=== PATIENT | female | born 1975 | race Caucasian/White ===

== ENCOUNTER 2022-10-14 17:12 | Emergency (ER) | payer MEDICAID, SELFPAY ==
[2022-10-14 17:32] VITALS: BP 123/83; PULSE 99; RESP 20; TEMP 36.2; O2SAT 97; BMI 39.7
--- NOTE | 2022-10-14 18:05 | CRLHL7_ITS ---
For Patients: As a result of the Century Cures Act, medical imaging exams and procedure reports are released immediately into your electronic medical record. You may view this report before your referring provider. If you have questions, please contact your health care provider. INDICATION: Cough TECHNIQUE: Single view chest. FINDINGS: The lungs are clear. The heart, mediastinum and pulmonary vessels are of normal size. There is no evidence of pleural disease. IMPRESSION: Negative chest. Dictated by Ania Celaya MD @ 10/14/2022 7:02:24 PM (Electronically Signed)
--- NOTE | 2022-10-14 18:08 | ED_ITS ---
HPI - General Adult General Time Seen by Provider: 18:09 Date Seen: 10/14/22 Chief complaint: Cough Stated complaint: Chest Pain From Cough Time Seen by Provider: 10/14/22 17:14 Source: patient Mode of arrival: ambulatory Limitations: no limitations History of Present Illness HPI narrative: Gabbie is a 46-year-old female who presents emerged department from work with a cough and chest congestion. 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 She does get some shortness of breath with the coughing, at time she has increased phlegm which causes her to vomit, she has been drinking soup and trying to keep hydrating. She denies any smoking, no history of any asthma. She has not had any ear pain but has a sore throat from coughing which is worse at night. She had 1 episode of coughing to the point where she vomited prior to arrival. She denies any abdominal pain or diarrhea. She is up-to-date on immunizations, she is vaccinated against covid. Due to the worsening symptoms presents emergency department Related Data Previous Rx's Medication Instructions Recorded benzonatate 100 mg capsule 100 mg PO TID 5 days #15 caps 10/14/22 Allergies Allergy/AdvReac Type Severity Reaction Status Date / Time No Known Drug Allergies Allergy Verified 10/14/22 17:43 Review of Systems Status of ROS: Reports: 10 or more systems reviewed and unremarkable except as noted in History and below Exam Narrative: Exam Narrative: General: No obvious distress sitting comfortably, nontoxic in appearance HEENT: Clear right middle ear effusion, left TM normal, oropharynx clear and moist, no post oropharyngeal erythema Neck supple, full range of motion, no adenopathy Lungs: Clear to auscultation bilaterally Heart: Normal sinus rhythm S1-S2 Abdomen: Soft nontender, bowel sounds present Muscle skeletal: +5 strength upper lower extremities Neuro: Gait within normal limits, alert and oriented x3 Const: Vital Signs, click to edit/add: Vital Signs - 24 hr 10/14/22 17:32 Temperature 97.2 F L Pulse Rate [Pulse Oximeter] 99 Respiratory Rate 20 Blood Pressure [Ri ght Upper Arm] 123/83 Pulse Oximetry 97 Oxygen Delivery Me thod Room Air Course Course Hospital Course: 5:50 PM: AIDET performed. vitals are normal, workup will include portable chest one view, will obtain SARs/influenza/RSV swabs, for her cough albuterol inhaler 2 puffs, Robitussin 100 mg and Tessalon Perles 200 mg. Differential diagnosis include but not limited to a viral upper respiratory illness, pneumonia, strep throat illness, bronchitis, asthma, COPD, chronic cough, allergic rhinitis, br onchiolitis, GERD as well as other etiologies Reevaluation(s) Reevaluation #1: Patient was updated on her lab and imaging results, imaging showed no acute cardiopulmonary process, SARs/influenza a/B/RSV was negative, she was given the above care and felt better, plan to discharge Tessalon Perles 100 mg t.i.d. over the next 5 days, she should continue with the inhaler 1-2 puffs every 4-6 hours for cough, OTC Robitussin as well, follow-up with primary care provider over the next 7-10 days. Return precautions given. Time: 19:05 Vital Signs Vital signs: Initial Vital Signs Temperature 97.2 F L 10/14/22 17:32 Temperature Source Temporal Artery Scan 10/14/22 17:32 Pulse Rate 99 10/14/22 17:32 Pulse Rhythm 10/14/22 17:32 Respiratory Rate 20 10/14/22 17:32 Blood Pressure 123/83 10/14/22 17:32 Blood Pressure Mean 96 10/14/22 17:32 Blood Pressure Position Supine 10/14/22 17:32 Pulse Oximetry 97 10/14/22 17:32 Oxygen Delivery Method 10/14/22 17:32 Vital Signs Temperature 97.2 F L 10/14/22 17:32 Pulse Rate 99 10/14/22 17:32 Respiratory Rate 20 10/14/22 17:32 Blood Pressure 123/83 10/14/22 17:32 Pulse Oximetry 97 10/14/22 17:32 Oxygen Delivery Method 10/14/22 17:32 Temperature 97.2 F L 10/14/22 17:32 Pulse Rate 99 10/14/22 17:32 Respiratory Rate 20 10/14/22 17:32 Blood Pressure 123/83 10/14/22 17:32 Pulse Oximetry 97 10/14/22 17:32 Oxygen Delivery Method 10/14/22 17:32 Medical Decision Making Lab Data Labs: Lab Results 10/14/22 Range/Units 18:01 SARS-CoV-2 (PCR) Negative SARS-CoV-2 (Negative) Influenza Type A (PCR) Negative PCR FLU A (Negative) Influenza Type B (PCR) Negative PCR FLU B (Negative) RSV (PCR) Negative PCR RSV (Negative) Discharge Plan Discharge Clinical Impression: Acute viral syndrome, Cough Instructions: Acute Cough (ED) Prescriptions: New benzonatate 100 mg capsule 100 mg PO TID 5 Days Qty: 15 0RF
--- OUTSIDE RECORDS SUMMARY | 2022-10-14 18:52 | XMS_ITS | Clinical Summary ---
:1975 Author Organization [facility] [place] [address] Care Team Providers Name Role Phone Carolee Quan MD Unavailable Pcp, No Primary Care Provider Unavailable Allergies Active Allergy Reactions Severity Noted Date Comments Mirtazapine Other - Describe In 06/22/2018 Too slee py Comment Field Trazodone Other - Describe In 08/23/2017 Extreme fatigue(for 3 Comment Field days on 12/02 ta b) Medications Medication Sig Dispensed Refills Start Date End Date Status blood-glucose Dispense meter, 1 Device 0 07/22/2017 Active meterIndications: test strips, Prediabetes lancets covered by pt ins. Prediabetes/R73.0 3 triamcinolone Apply topically 28.4 g 2 09/15/2017 Active (ARISTOCORT; KENALOG) to affected 0.1 % area(s) 2 times creamIndications: Rash daily if needed for Other (Specify) (rash). Do not use on face multivitamin capsule One a Day 0 10/05/2017 Active meclizine (ANTIVERT) Take 1 tablet by 30 tablet 2 05/18/2018 Active 25 mg mouth 3 times tabletIndications: daily if needed Vertigo for Vertigo. desogestrel-ethinyl Take 1 tablet by 3 Package 3 05/18/2018 Active estradiol 0.15-30 mouth once daily. mg-mcg (ORTHO-CEPT, 28,) tabletIndications: Irregular periods, PCOS (polycystic ovarian syndrome) citalopram (CELEXA) 40 Take 1 tablet by 90 tablet 1 06/22/2018 Active mg tabletIndications: mouth once daily. Moderate episode of recurrent major depressive disorder (HC), Anxiety, Agoraphobia omeprazole (PRILOSEC) Take 1 capsule by 90 capsule 3 8 Active 20 mg Delayed-Release mouth once daily capsuleIndications: before a meal. Atypical chest pain buPROPion (WELLBUTRIN Take 1 tablet by 90 tablet 1 06/22/2018 Active XL) 150 mg mouth every Extended-Release morning. tabletIndications: Moderate episode of recurrent major depressive disorder (HC) Black Cohosh 40 mg Use daily as 0 06/22/2018 Active tabIndications: needed Menopausal symptoms Active Problems Problem Noted Date Agoraphobia 03/23/2018 Prediabetes 06/21/2017 Migraine without aura and without status migrainosus, not intractable 03/22/2015 History of gestational diabetes mellitus, not currentl y 01/06/2011 Resolved Problems Problem Noted Date Resolved Date Anxiety 11/14/2014 04/04/2018 Moderate episode of recurrent major depressive disorder 04/2904/04/2018 Immunizations Name Administration Dates Next Due DTP 06/30/1989, 01/06/1989 Oral Polio Vaccine 08/18/1989, 01/06/1989 Polio Virus, Unspecified 08/18/1989, 01/06/1989 Tdap 09/19/2012, 05/06/2006 Family History Medical History Relation Name Comments Good Health Brother 1 Good Health Brother 2 Good Health Brother 3 Good Health Brother 4 Diabetes Father Heart attack Father Hyperlipidemia Father Hypertension Father Other Father after head injury Psychiatric illness Father depression Psychiatric illness Mother depression Cancer-breast Neg. 1 Cancer-colon Neg. 2 Good Health Sister 1 Good Health Sister 2 Good Health Sister 3 Good Health Sister 4 Relation Name Status Comments Brother 1 Brother 2 Brother 3 Brother 4 Father Mother Neg. 1 Neg. 2 Sister 1 Sister 2 Sister 3 Sister 4 Social History Tobacco Use Types Packs/Day Years Used Date Former Smoker Cigarettes 0.25 2 Quit: 11/29/19 Smokeless Tobacco: Never Used Tobacco Cessation: Counseling Given: Yes Comments: socially Alcohol Use Standard Drinks/Week Comments No 0 (1 standard drink = 0.6 oz pure alcoho l) Alcohol Habits Answer Date Recorded How often do you have a drink containing alcohol? Not asked How many drinks containing alcohol do you have on a typical Not asked day when you are drinking? How often do you have six or more drinks on one occasion? No t asked Comment: 03/15/2012 Sex Assigned at Date Recorded Not on file Obstetrics History Para Term AB IAB SAB Ectopic Multiple Living Live Births 2 2 2 0 0 0 0 0 2 Date Outcome GA Total Labor/2nd/3rd Weight Sex Delivery Anes PTL Beulah A 1 A5 Name Clin Labor 07/04 Term 40w 20h 00m/ 3.4 kg M Abhi /2005 0d (7 lb 8 oz) Comments: decelerations, maternal fever ??? failure to decent 08/2012 Term 39w0d M J oshua Comments: System Generated. Please review and update details. Last Filed Vital Signs Vital Sign Reading Time Taken Comments Blood Pressure 114/79 08/19/2018 11:50 AM CDT Pulse 97 08/19/2018 11:50 AM CDT Temperature 36.8 ??C (98.3 ??F) 08/19/2018 11:50 AM CDT Respiratory Rate 16 10/05/2017 1:18 PM [employer] Oxygen Saturation 96% 08/19/2018 11:50 AM CDT Inhaled Oxygen Concentration - - Weight 85.7 kg (189 lb) 08/19/2018 11:50 AM CDT Height 149 cm (4' 10.66) 08/19/2018 11:50 AM CDT Body Mass Index 38.62 08/19/2018 11:50 AM CDT Plan of Treatment Health Maintenance Due Date Last Done Comments COVID-19 vaccine series (#1) 06/06/1978 Hepatitis C screening for age 0112/07/1995 18-79 Pap test for age 21-65 10/12/2017 10/12/2014, 01/06/2011, 11/12/2004 BMI (ht and wt on same day) for 08/19/2019 08/19/2018, 05/30, age 18+ 05/26/2018, Additional history exists Depression screening for age 12+ 12/02/2019 12/02/2018, , 10/14/2018, Additional history exists Influenza for age 9-49 07/30/2022 Tetanus booster 09/19/2022 09/19/2012, 05/06/2006 Tdap Completed 09/19/2012, 05/06/2006 Results Not on filefrom Last 3 Months Insurance Payer Benefit Plan / Subscriber ID Effective Dates Phone Addre ss Type Group BLUE CROSS BLUE CR[employer] OF [id number] 2017-Present [address] [place] [address] Advance Directives Latest Code Status on File Code Status Date Activated Date Inactivated Comments Full Code 07/15/2012 7:47 PM 07/18/2012 2:40 PM Care Teams Rock [employer] Relationship Specialty Start Date End Date Pcp, No PCP - General 01/20/19 . Carolee Quan MD [employer] Obstetrics 06/08/12
[2022-10-14 18:56] LABS: PCR FLU A Negative PCR FLU A (Negative); PCR FLU B Negative PCR FLU B (Negative); PCR RSV Negative PCR RSV (Negative)
[2022-10-14 18:59] LABS: SARS PCR* Negative SARS-CoV-2 (Negative)
--- NOTE | 2022-10-14 21:11 | ED.NURSE ---
Medications could not be obtained in timely manner. Prescriptions sent in to pharmacy instead.
== END 2022-10-14 19:29 | disposition home or self-care (01) ==
PROVIDERS: Emergency Provider Student in an Organized Health Care Education/Training Program
DX: R05.9 Cough, unspecified (principal); B34.9 Viral infection, unspecified
CPT/HCPCS: 71045; 87502; 87634; 87635; 99284; A9270

== ENCOUNTER 2022-12-02 11:13 | Outpatient (CLI) | payer MEDICAID, SELFPAY ==
[2022-12-02 13:30] LABS: Albumin* 4.5 g/dL (3.3-5.0); Chloride* 103 mmol/L (96-114); Potassium* 4.5 mmol/L (3.6-5.1); Sodium* 136 mmol/L (135-149)
[2022-12-02 13:32] LABS: Bilirubin Total* 0.7 mg/dL (0.1-1.5); Carbon Dioxide* 25 mmol/L (20-32); Creatinine* 0.6 mg/dL (0.5-1.5); Estimated Glomerular Filt Rate 113 ml/min
[2022-12-02 13:33] LABS: Alanine Aminotransferase* 41 U/L (4-35); Alkaline Phosphatase* 95 U/L (40-150); Aspartate Amino Transferase* 32 U/L (12-35); Blood Urea Nitrogen* 10 mg/dL (5-24); Glucose* 106 mg/dL (60-115); Total Protein* 7.2 g/dL (6.0-8.3); Triglycerides* 392 mg/dL (40-149)
[2022-12-02 13:34] LABS: Calcium* 9.3 mg/dL (8.4-10.6); HDL Cholesterol* 42 mg/dL (>=50)
[2022-12-02 15:28] LABS: Cholesterol* 245 mg/dL (90-199); LDL Cholesterol Calculated 125 mg/dL (<100)
== END 2022-12-02 11:14 | disposition home or self-care (01) ==
PROVIDERS: PCP Family Medicine; Visit Provider Family Medicine
DX: R06.09 Other forms of dyspnea (principal); R07.9 Chest pain, unspecified; F41.9 Anxiety disorder, unspecified; R10.2 Pelvic and perineal pain; Z13.6 Encounter for screening for cardiovascular disorders
CPT/HCPCS: 80053; 80061; 84443

== ENCOUNTER 2022-12-22 08:03 | Outpatient (CLI) | payer MEDICAID, SELFPAY ==
--- NOTE | 2022-12-22 08:15 | CRLHL7_ITS ---
For Patients: As a result of the Century Cures Act, medical imaging exams and procedure reports are released immediately into your electronic medical record. You may view this report before your referring provider. If you have questions, please contact your health care provider. INDICATION: 47 year-old female. Generalized pelvic pain left greater than right for 5 months. TECHNIQUE: Transabdominal and transvaginal pelvic ultrasound. FINDINGS: The uterus measures 11.0 x 5.4 x 6.3 cm. The endometrial stripe measures 17 mm which can be normal in a premenopausal female. No myometrial mass. Cervical nabothian cysts. The right ovary measures 3.0 x 1.5 x 2.3 cm. The left ovary measures 4.9 x 2.9 x 2.6 cm. Both ovaries contain several small follicles. There is a collapsing follicular cyst in the left ovary likely physiologic. Blood flow is identified in the ovaries. Color Doppler waveform analysis was not performed. No free pelvic fluid. IMPRESSION: 1. Normal-sized ovaries without masses. Collapsing follicular cyst left ovary. 2. No myometrial mass. No free pelvic fluid. Dictated by Lupillo Lara MD @ 12/22/2022 2:08:00 PM (Electronically Signed)
[2022-12-22 14:27] VITALS: BP 132/83; PULSE 103
--- NOTE | 2022-12-22 20:54 | W.PM.STED ---
Stress Test Note Date Date of test: 12/22/22 Providers Primary care provider: Matty Valdez Stress test physician: Paco Ornelas Stress Test Note Stress test ordered: Stress Echo Indication for test: Exertional chest pain Results discussion: Very nice lady presents for the above test after discussion the risks benefits and side effects she would like to proceed pretest cardiac stress test medical history form is reviewed. Rhythm is sinus, rate is 89, blood pressure 118 on 68. Small Q-waves are noted inferiorly, which may be pathologic. Patient is exercised for a total time of 4 minutes 51 seconds, achieved a metabolic equivalent of 6.8 Mets, with a maximum heart rate 157 which is 105% of the maximum. No ST wave changes are notable is suggestive of ischemia, there is no dysrhythmias she had no chest Impression: Negative electrographic portion of stress test Follow up suggested: Await echo images clinical correlation with these will be needed, patient is discharged back to baseline.
== END 2022-12-22 08:04 | disposition home or self-care (01) ==
PROVIDERS: PCP Family Medicine; Visit Provider Family Medicine
DX: R07.9 Chest pain, unspecified (principal); R06.09 Other forms of dyspnea; Z82.49 Family history of ischemic heart disease and other diseases of the circulatory system; R10.2 Pelvic and perineal pain
CPT/HCPCS: 76830; 76856; 93016; 93325; 93351

== ENCOUNTER 2023-01-26 15:51 | Emergency (ER) | payer MEDICAID, SELFPAY ==
[2023-01-26 15:57] VITALS: BP 135/93; PULSE 121; RESP 16; TEMP 36.6; O2SAT 96; BMI 40.3
--- NOTE | 2023-01-26 16:55 | ED.GENADULT ---
HPI - General Adult General Chief complaint: Headache/Migraine Stated complaint: Headache Vomiting Diarrhea Time Seen by Provider: 01/26/23 16:12 History of Present Illness HPI narrative: This 47-year-old female comes in reporting migraine headache since yesterday. She does have history of migraine headaches in this 1 is similar but bad enough to come in for treatment. She also has vomiting and diarrhea a and is concerned that she may have COVID or some kind of infection related to this. She does not report any fevers but has felt chilled at times. She does arrive with normal vital signs except her pulses increased at around 120 beats per minute. Related Data Previous Rx's Medication Instructions Recorded sertraline 50 mg tablet 50 mg PO QDAY #90 tabs 01/14/23 Allergies Allergy/AdvReac Type Severity Reaction Status Date / Time trazodone AdvReac Mild weakness, Verified 01/14/23 14:14 makes me sleep too much Review of Systems Status of ROS: Reports: 10 or more systems reviewed and unremarkable except as noted in History and below Narrative: Constitutional: No fevers, no weight gain or loss. Eyes: No discharge. No vision changes. HENT: No congestion, no sore throat, no ear pain. She reports a migraine headache. Cardiovascular: No chest pain, no palpitations. Respiratory: No shortness of breath, no wheezes, no cough. Gastrointestinal: Mild diffuse abdominal pain. Nausea, vomiting, and diarrhea are present. Genitourinary: No dysuria, no hematuria. Musculoskeletal: Normal range of motion. Skin: No rashes, no pruritis. Neurological: No dizziness, weakness, sensory change, speech change. Endo/Heme/Allergies: No bruising or bleeding. No polydipsia. Pysch: no suicidality, no anxiety, no insomnia. All other systems reviewed and are negative. [facility] Medical History (Updated 01/26/23 @ 19:11 by Darrin Spence MD) History of gestational diabetes mellitus (GDM), not currently (01/06/11) Surgical History (Updated 01/08/23 @ 10:38 by Dorota Tesfaye MD) History of bilateral tubal ligation (09/19/12) History of laparoscopic cholecystectomy (10/04/12) Previous section (09/19/12) Social History Smoking Status: Never smoker Do you use any of these nicotine containing products: None Second hand tobacco smoke exposure: No How often do you have a drink containing alcohol: monthly or less How many standard drinks containing alcohol do you have on a typical day: 1 or 2 How often do you have six or more drinks on one occasion: Never AUDIT-C Alcohol total score: 1 Non-prescribed substance use: denies use Little interest or pleasure in doing things: more than half the days Feeling down, depressed, or hopeless: more than half the days service: No Exam Narrative: Exam Narrative: Constitutional: Well-developed, well-nourished, no acute distress. HEENT: Normocephalic, atraumatic. Neck: Normal range of motion. Nontender. Supple. Heart: Regular. No murmurs. Tachycardia, rate around 120 beats per minute. Intact distal pulses. Lungs: Clear to auscultation. No chest discomfort. No wheezes, rhonchi, or rales. Abdomen: Normal bowel sounds. Nontender. No rebound tenderness. Genitalia: Deferred. Back: No midline tenderness. Normal range of motion. Extremities: Normal range of motion. No injury. Skin: Intact. No rash. Warm. No erythema or pallor. Neurologic: No altered sensation. No weakness. Alert and oriented. Psychiatric: No suicidality. No anxiety or depression. No insomnia. Nursing notes and vitals signs are reviewed. Const: Vital Signs, click to edit/add: Vital Signs - 24 hr 01/26/23 15:57 Temperature 97.9 F Pulse Rate [Pulse Oximeter] 121 H Respiratory Rate 16 Blood Pressure [Ri ght Upper Arm] 135/93 H Pulse Oximetry 96 Oxygen Delivery Me thod Room Air Course Vital Signs Vital signs: Initial Vital Signs Temperature 97.9 F 01/26/23 15:57 Temperature Source Temporal Artery Scan 01/26/23 15:57 Pulse Rate 121 H 01/26/23 15:57 Pulse Rhythm 01/26/23 15:57 Pulse Strength 3+ Normal 01/26/23 15:57 Respiratory Rate 16 01/26/23 15:57 Blood Pressure 135/93 H 01/26/23 15:57 Blood Pressure Mean 107 01/26/23 15:57 Blood Pressure Position Sitting 01/26/23 15:57 Pulse Oximetry 96 01/26/23 15:57 Oxygen Delivery Method 01/26/23 15:57 Vital Signs Temperature 97.9 F 01/26/23 15:57 Pulse Rate 121 H 01/26/23 15:57 Respiratory Rate 16 01/26/23 15:57 Blood Pressure 135/93 H 01/26/23 15:57 Pulse Oximetry 96 01/26/23 15:57 Oxygen Delivery Method 01/26/23 15:57 Temperature 97.9 F 01/26/23 15:57 Pulse Rate 121 H 01/26/23 15:57 Respiratory Rate 16 01/26/23 15:57 Blood Pressure 135/93 H 01/26/23 15:57 Pulse Oximetry 96 01/26/23 15:57 Oxygen Delivery Method 01/26/23 15:57 Medical Decision Making MDM Narrative Medical decision making narrative: This patient comes in with a typical migraine headache for her. She also has vomiting and diarrhea. An IV was established where she received a L of normal saline, Toradol 30 mg, Benadryl 50 mg, and Zofran 4 mg. This brought sufficient relief to her symptoms. Lab results returned negative for COVID, influenza, and RSV. She is reassured with these results. She is okay to return home to continue current plans and increase activity as tolerated. Lab Data Labs: Lab Results 01/26/23 Range/Units 16:54 SARS-CoV-2 (PCR) Negative SARS-CoV-2 (Negative) Influenza Type A (PCR) Negative PCR FLU A (Negative) Influenza Type B (PCR) Negative PCR FLU B (Negative) RSV (PCR) Negative PCR RSV (Negative) Discharge Plan Discharge Clinical Impression: Migraine without aura and without status migrainosus, not intractable, Gastroenteritis Patient Disposition: Home, Self-Care Condition: Improved Additional Instructions: Use [id number] medicines as needed and directed. Increase activity as tolerated. Follow up with MD or return if worsening. Prescriptions: No Action sertraline 50 mg tablet 50 mg PO QDAY Qty: 90 3RF Follow Up/Referrals: Matty Valdez MD [Primary Care Provider] - Stand Alone Forms: [employer] Info Instructions
[2023-01-26] MEDS: ONDANSETRON 2 MG/ML inj 4 MG IVP (17:16)
[2023-01-26] MEDS: 0.9 % SODIUM CHLORIDE 1000 ml 1,000 ML IV (17:16)
[2023-01-26] MEDS: diphenhydrAMINE 50 MG/ML inj IVP (17:16)
[2023-01-26] MEDS: KETOROLAC 30 MG/ML inj IVP (17:16)
[2023-01-26 18:23] LABS: PCR FLU A Negative PCR FLU A (Negative); PCR FLU B Negative PCR FLU B (Negative); PCR RSV Negative PCR RSV (Negative)
[2023-01-26 18:25] LABS: SARS PCR* Negative SARS-CoV-2 (Negative)
[2023-01-26 19:23] VITALS: BP 120/75; PULSE 98; RESP 16; O2SAT 96
== END 2023-01-26 19:24 | disposition home or self-care (01) ==
PROVIDERS: Emergency Provider Emergency Medicine Emergency Medical Services; PCP Family Medicine
DX: G43.009 Migraine without aura, not intractable, without status migrainosus (principal); K52.9 Noninfective gastroenteritis and colitis, unspecified
CPT/HCPCS: 87502; 87634; 87635; 96374; 96375; 99284; J1200; J1885; J2405; J7030

== ENCOUNTER 2023-09-13 16:34 | Emergency (ER) | payer MEDICAID, SELFPAY ==
[2023-09-13] VITALS (8 sets, daily range): BP systolic 128–135; BP diastolic 84–91; PULSE 96–102; RESP 18; TEMP 36.6; O2SAT 94–97; BMI 40.4
[2023-09-13 18:18] LABS: PCR FLU A Negative PCR FLU A (Negative); PCR FLU B Negative PCR FLU B (Negative); PCR RSV Negative PCR RSV (Negative)
[2023-09-13 18:20] LABS: SARS PCR* Negative SARS-CoV-2 (Negative)
--- NOTE | 2023-09-13 18:29 | CRLHL7_ITS ---
For Patients: As a result of the Century Cures Act, medical imaging exams and procedure reports are released immediately into your electronic medical record. You may view this report before your referring provider. If you have questions, please contact your health care provider. INDICATIONS: Chest pain. TECHNIQUE: Chest 2 view. COMPARISON: Chest radiograph 12/02/2022. FINDINGS: No pneumothorax or pleural effusion. Lungs are clear. Cardiac and mediastinal contours are within normal limits. Upper abdomen and osseous structures as imaged show no acute abnormality. IMPRESSION: No evidence of acute cardiopulmonary disease. Dictated by Omero Kat MD @ 09/13/2023 8:59:01 PM (Electronically Signed)
[2023-09-13 19:13] LABS: Basophils Absolute Auto 0.04 K/uL (0.00-0.30); Basophils Percent Auto 0.5 % (0.0-3.0); Eosinophils Absolute Auto 0.27 K/uL (0.00-0.50); Eosinophils Percent Auto 3.2 % (0.0-7.0); Hematocrit 41.3 % (33.0-51.0); Hemoglobin* 13.7 gm/dL (12.0-16.0); Immature Granulocytes Abs Auto 0.01 K/uL (0.00-0.30); Immature Granulocytes Pct Auto 0.1 %; Lymphocytes Absolute Auto 2.81 K/uL (0.90-2.90); Lymphocytes Percent Auto 33.7 % (20-44); Mean Corpuscular HGB Conc 33 gm/dL (32-36); Mean Corpuscular Hemoglobin 28 pg (26-34); Mean Corpuscular Volume 85 fL (80-100); Monocytes Percent Auto 10.4 % (0.0-11.0); Neutrophils Absolute Auto 4.34 K/uL (1.7-7.0); Neutrophils Percent Auto 52.1 % (42.0-72.0); Platelet Count* 384 K/uL (140-440); Red Blood Count 4.89 m/uL (4.00-5.20); White Blood Count* 8.34 K/uL (4.50-11.00)
[2023-09-13 19:19] LABS: Slide Review Reflex No
[2023-09-13 19:27] LABS: Mono Screen* Negative (Negative)
[2023-09-13 19:34] LABS: Strep A DNA Probe* NOT DETECTED (Not Detectd)
[2023-09-13 19:36] LABS: Chloride* 103 mmol/L (96-114); Potassium* 3.8 mmol/L (3.6-5.1); Sodium* 135 mmol/L (135-149)
[2023-09-13 19:38] LABS: HCG Qualitative Serum* Negative (Negative)
[2023-09-13 19:39] LABS: Anion Gap 9 mEq/L (7-15); Blood Urea Nitrogen* 10 mg/dL (5-24); Carbon Dioxide* 23 mmol/L (20-32); Creatinine* 0.5 mg/dL (0.5-1.5); Est. Creatinine Clearance* 203.49; Estimated Glomerular Filt Rate 118 ml/min
[2023-09-13 19:40] LABS: Calcium* 9.2 mg/dL (8.4-10.6); Glucose* 102 mg/dL (60-115)
[2023-09-13 19:53] LABS: Troponin I* < 0.01 ng/mL (0.01-0.04)
[2023-09-13 19:54] LABS: NT Pro B Type NatriureticPept* 33 pg/mL
--- NOTE | 2023-09-13 20:23 | ED.GENADULT ---
HPI - General Adult General Date Seen: 09/13/23 Chief complaint: Cough Stated complaint: Cough, short of breath, chest pain Time Seen by Provider: 09/13/23 18:22 Source: patient Mode of arrival: ambulatory Limitations: no limitations History of Present Illness HPI narrative: Patient is a 47-year-old female presenting to emergency department for multiple complaints. 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 She is not currently nauseated. Has not thrown up today. Does not have much of an appetite but has been drinking plenty of fluids. Denies any abdominal pain. Says the shortness of breath is very mild. She denies being short of breath at this time. States the chest pain is in the left upper chest goes to her back. Denies ever having symptoms like this before. She does have a cough has been coughing up clear phlegm. Has a mild runny nose. No family history of heart disease. Is a nonsmoker. No history of diabetes, hypertension, hyperlipidemia. No other complaints at this time. Related Data Previous Rx's Medication Instructions Recorded sertraline 50 mg tablet 50 mg PO QDAY #90 tabs 01/14/23 Allergies Allergy/AdvReac Type Severity Reaction Status Date / Time trazodone AdvReac Mild weakness, Verified 01/14/23 14:14 makes me sleep too much Review of Systems Status of ROS: Reports: 10 or more systems reviewed and unremarkable except as noted in History and below [facility] Medical History History of gestational diabetes mellitus (GDM), not currently (01/06/11) ?Z86.32 - Personal history of gestational diabetes (ICD-10) Surgical History Previous section (09/19/12) ?Z98.891 - History of uterine scar from previous surgery (ICD-10) History of laparoscopic cholecystectomy (10/04/12) ?Z90.49 - Acquired absence of other specified parts of digestive tract (ICD-10) History of bilateral tubal ligation (09/19/12) ?Z98.51 - Tubal ligation status (ICD-10) Social History Smoking Status: Never smoker Do you use any of these nicotine containing products: None Second hand tobacco smoke exposure: No How often do you have a drink containing alcohol: monthly or less How many standard drinks containing alcohol do you have on a typical day: 1 or 2 How often do you have six or more drinks on one occasion: Never AUDIT-C Alcohol total score: 1 Non-prescribed substance use: denies use Little interest or pleasure in doing things: more than half the days Feeling down, depressed, or hopeless: more than half the days service: No Exam Const: Vital Signs, click to edit/add: Vital Signs - 24 hr 09/13/23 17:16 09/13/23 19:49 09/13/23 20:00 Temperature 98 F Pulse Rate 102 H 99 Pulse Rate [Pulse Oximeter] 102 H Respiratory Rate 18 Blood Pressure Blood Pressure [Ri ght Upper Arm] 135/84 Pulse Oximetry 97 96 95 Oxygen Delivery Me thod Room Air 09/13/23 20:01 09/13/23 20:18 09/13/23 20:30 Temperature Pulse Rate 98 97 96 Pulse Rate [Pulse Oximeter] Respiratory Rate Blood Pressure 128/84 134/91 H Blood Pressure [Ri ght Upper Arm] Pulse Oximetry 94 94 95 Oxygen Delivery Me thod 09/13/23 20:31 09/13/23 20:32 Temperature Pulse Rate 97 100 Pulse Rate [Pulse Oximeter] Respiratory Rate Blood Pressure 135/85 Blood Pressure [Ri ght Upper Arm] Pulse Oximetry 96 96 Oxygen Delivery Me thod Course Vital Signs Vital signs: Initial Vital Signs Temperature 98 F 09/13/23 17:16 Temperature Source Temporal Artery Scan 09/13/23 17:16 Pulse Rate 102 H 09/13/23 17:16 Pulse Rhythm Regular 09/13/23 17:16 Respiratory Rate 18 09/13/23 17:16 Blood Pressure 135/84 09/13/23 17:16 Blood Pressure Mean 101 09/13/23 17:16 Blood Pressure Position Sitting 09/13/23 17:16 Pulse Oximetry 97 09/13/23 17:16 Oxygen Delivery Method Room Air 09/13/23 17:16 Vital Signs Temperature 98 F 09/13/23 17:16 Pulse Rate 102 H 09/13/23 17:16 Respiratory Rate 18 09/13/23 17:16 Blood Pressure 135/84 09/13/23 17:16 Pulse Oximetry 97 09/13/23 17:16 Oxygen Delivery Method Room Air 09/13/23 17:16 Temperature 98 F 09/13/23 17:16 Pulse Rate 100 09/13/23 20:32 Respiratory Rate 18 09/13/23 17:16 Blood Pressure 135/85 09/13/23 20:32 Pulse Oximetry 96 09/13/23 20:32 Oxygen Delivery Method Room Air 09/13/23 17:16 Medical Decision Making MDM Narrative Medical decision making narrative: Patient is a 47-year-old female presented emergency department for multiple complaints. Appears to be a viral syndrome. She is PERC negative and PE is unlikely. Did order chest x-ray to look for signs of pneumonia and pneumothorax. I reviewed the x-ray myself and I see some thickened bronchial markings but no signs of bacterial pneumonia. This is likely secondary to virus based on my interpretation. We are pending the official read. The pain does radiate to the back but vital signs otherwise stable appears unlikely to be aortic dissection. ACS is also on differential in a mL, magnesium, BNP, test, troponin, COVID/flu/RSV all ordered. She is also a sore throat so I ordered a strep test and mono screen. Patient's lab work all returned showing no acute abnormalities. EKG shows no concerning findings. Troponins within normal limits. Her heart score is 1 at this time. Do not believe repeat troponins are necessary at this time. She had a stress test performed in November of this year that was normal. She most likely has a viral infection causing the symptoms. She will be discharged home and she is agreeable to this plan. Lab Data Labs: Lab Results 09/13/23 09/13/23 09/13/23 Range/Units 17:22 19:00 19:05 WBC 8.34 (4.50-11.00) K/uL RBC 4.89 (4.00-5.20) m/uL Hgb 13.7 (12.0-16.0) gm/dL Hct 41.3 (33.0-51.0) % MCV 85 (80-100) fL MCH 28 (26-34) pg MCHC 33 (32-36) gm/dL RDW Coeff of Phong 12.0 (11.5-15.5) % Plt Count 384 (140-440) K/uL Neut % (Auto) 52.1 (42.0-72.0) % Lymph % (Auto) 33.7 (20-44) % [place] % (Auto) 10.4 (0.0-11.0) % Eos % (Auto) 3.2 (0.0-7.0) % Baso % (Auto) 0.5 (0.0-3.0) % Neut # (Auto) 4.34 (1.7-7.0) K/uL Lymph # (Auto) 2.81 (0.90-2.90) K/uL [place] # (Auto) 0.90 (0.00-0.90) K/UL Eos # (Auto) 0.27 (0.00-0.50) K/uL Baso # (Auto) 0.04 (0.00-0.30) K/uL Abs Immat Gran (auto) 0.01 (0.00-0.30) K/uL Imm/Tot Granulo (auto) 0.1 % Sodium Cancelled Potassium Chloride Carbon Dioxide Anion Gap BUN Creatinine Estimated Creat Clear Estimated GFR Glucose Calcium Magnesium (1.5-2.6) mg/dL Troponin I (0.01-0.04) ng/mL NT-Pro-B Natriuret Pep pg/mL HCG, Qual (Negative) SARS-CoV-2 (PCR) Negative SARS-CoV-2 (Negative) Monoscreen (Negative) Influenza Type A (PCR) Negative PCR FLU A (Negative) Influenza Type B (PCR) Negative PCR FLU B (Negative) RSV (PCR) Negative PCR RSV (Negative) Group A Strep DNA NOT DETECTED (Not Detectd) Lab Acknowledgement 09/13/23 09/13/23 09/13/23 Range/Units 19:05 19:05 19:05 WBC (4.50-11.00) K/uL RBC (4.00-5.20) m/uL Hgb (12.0-16.0) gm/dL Hct (33.0-51.0) % MCV (80-100) fL MCH (26-34) pg MCHC (32-36) gm/dL RDW Coeff of Phong (11.5-15.5) % Plt Count (140-440) K/uL Neut % (Auto) (42.0-72.0) % Lymph % (Auto) (20-44) % [place] % (Auto) (0.0-11.0) % Eos % (Auto) (0.0-7.0) % Baso % (Auto) (0.0-3.0) % Neut # (Auto) (1.7-7.0) K/uL Lymph # (Auto) (0.90-2.90) K/uL [place] # (Auto) (0.00-0.90) K/UL Eos # (Auto) (0.00-0.50) K/uL Baso # (Auto) (0.00-0.30) K/uL Abs Immat Gran (auto) (0.00-0.30) K/uL Imm/Tot Granulo (auto) % Sodium 135 Potassium Cancelled 3.8 Chloride Cancelled 103 Carbon Dioxide Cancelled Anion Gap BUN Creatinine Estimated Creat Clear Estimated GFR Glucose Calcium Magnesium (1.5-2.6) mg/dL Troponin I (0.01-0.04) ng/mL NT-Pro-B Natriuret Pep pg/mL HCG, Qual (Negative) SARS-CoV-2 (PCR) (Negative) Monoscreen (Negative) Influenza Type A (PCR) (Negative) Influenza Type B (PCR) (Negative) RSV (PCR) (Negative) Group A Strep DNA (Not Detectd) Lab Acknowledgement 09/13/23 09/13/23 09/13/23 Range/Units 19:05 19:05 19:05 WBC (4.50-11.00) K/uL RBC (4.00-5.20) m/uL Hgb (12.0-16.0) gm/dL Hct (33.0-51.0) % MCV (80-100) fL MCH (26-34) pg MCHC (32-36) gm/dL RDW Coeff of Phong (11.5-15.5) % Plt Count (140-440) K/uL Neut % (Auto) (42.0-72.0) % Lymph % (Auto) (20-44) % [place] % (Auto) (0.0-11.0) % Eos % (Auto) (0.0-7.0) % Baso % (Auto) (0.0-3.0) % Neut # (Auto) (1.7-7.0) K/uL Lymph # (Auto) (0.90-2.90) K/uL [place] # (Auto) (0.00-0.90) K/UL Eos # (Auto) (0.00-0.50) K/uL Baso # (Auto) (0.00-0.30) K/uL Abs Immat Gran (auto) (0.00-0.30) K/uL Imm/Tot Granulo (auto) % Sodium Potassium Chloride Carbon Dioxide 23 Anion Gap Cancelled 9 BUN Cancelled 10 Creatinine Cancelled Estimated Creat Clear Estimated GFR Glucose Calcium Magnesium (1.5-2.6) mg/dL Troponin I (0.01-0.04) ng/mL NT-Pro-B Natriuret Pep pg/mL HCG, Qual (Negative) SARS-CoV-2 (PCR) (Negative) Monoscreen (Negative) Influenza Type A (PCR) (Negative) Influenza Type B (PCR) (Negative) RSV (PCR) (Negative) Group A Strep DNA (Not Detectd) Lab Acknowledgement 09/13/23 09/13/23 09/13/23 Range/Units 19:05 19:05 19:05 WBC (4.50-11.00) K/uL RBC (4.00-5.20) m/uL Hgb (12.0-16.0) gm/dL Hct (33.0-51.0) % MCV (80-100) fL MCH (26-34) pg MCHC (32-36) gm/dL RDW Coeff of Phong (11.5-15.5) % Plt Count (140-440) K/uL Neut % (Auto) (42.0-72.0) % Lymph % (Auto) (20-44) % [place] % (Auto) (0.0-11.0) % Eos % (Auto) (0.0-7.0) % Baso % (Auto) (0.0-3.0) % Neut # (Auto) (1.7-7.0) K/uL Lymph # (Auto) (0.90-2.90) K/uL [place] # (Auto) (0.00-0.90) K/UL Eos # (Auto) (0.00-0.50) K/uL Baso # (Auto) (0.00-0.30) K/uL Abs Immat Gran (auto) (0.00-0.30) K/uL Imm/Tot Granulo (auto) % Sodium Potassium Chloride Carbon Dioxide Anion Gap BUN Creatinine 0.5 Estimated Creat Clear Cancelled 203.49 Estimated GFR Cancelled 118 Glucose Cancelled Calcium Magnesium (1.5-2.6) mg/dL Troponin I (0.01-0.04) ng/mL NT-Pro-B Natriuret Pep pg/mL HCG, Qual (Negative) SARS-CoV-2 (PCR) (Negative) Monoscreen (Negative) Influenza Type A (PCR) (Negative) Influenza Type B (PCR) (Negative) RSV (PCR) (Negative) Group A Strep DNA (Not Detectd) Lab Acknowledgement 09/13/23 09/13/23 Range/Units 19:05 19:05 WBC (4.50-11.00) K/uL RBC (4.00-5.20) m/uL Hgb (12.0-16.0) gm/dL Hct (33.0-51.0) % MCV (80-100) fL MCH (26-34) pg MCHC (32-36) gm/dL RDW Coeff of Phong (11.5-15.5) % Plt Count (140-440) K/uL Neut % (Auto) (42.0-72.0) % Lymph % (Auto) (20-44) % [place] % (Auto) (0.0-11.0) % Eos % (Auto) (0.0-7.0) % Baso % (Auto) (0.0-3.0) % Neut # (Auto) (1.7-7.0) K/uL Lymph # (Auto) (0.90-2.90) K/uL [place] # (Auto) (0.00-0.90) K/UL Eos # (Auto) (0.00-0.50) K/uL Baso # (Auto) (0.00-0.30) K/uL Abs Immat Gran (auto) (0.00-0.30) K/uL Imm/Tot Granulo (auto) % Sodium Potassium Chloride Carbon Dioxide Anion Gap BUN Creatinine Estimated Creat Clear Estimated GFR Glucose 102 Calcium Cancelled 9.2 Magnesium 2.0 (1.5-2.6) mg/dL Troponin I < 0.01 L (0.01-0.04) ng/mL NT-Pro-B Natriuret Pep 33 pg/mL HCG, Qual Negative (Negative) SARS-CoV-2 (PCR) (Negative) Monoscreen Negative (Negative) Influenza Type A (PCR) (Negative) Influenza Type B (PCR) (Negative) RSV (PCR) (Negative) Group A Strep DNA (Not Detectd) Lab Acknowledgement Test Added Imaging Data Chest x-ray: Radiologist's impression: INDICATIONS: Chest pain. TECHNIQUE: Chest 2 view. COMPARISON: Chest radiograph 12/02/2022. FINDINGS: No pneumothorax or pleural effusion. Lungs are clear. Cardiac and mediastinal contours are within normal limits. Upper abdomen and osseous structures as imaged show no acute abnormality. IMPRESSION: No evidence of acute cardiopulmonary disease. Dictated by Omero Kat MD @ 09/13/2023 8:59:01 PM ECG Data Attestation: I personally reviewed and interpreted this ECG as follows: Prior ECG tracings: available for review (12/03/2022) Interpretation: Normal sinus rhythm with a rate of 87 beats per minute, normal intervals, normal axis, no ST or T-wave abnormalities. T-waves I inverted in the 3 but this can be a normal variant. It is difficult to say for certain but based on her previous EKG it appears there are inverted than 2 Discharge Plan Discharge Clinical Impression: Acute viral syndrome Patient Disposition: Home, Self-Care Condition: Stable Instructions: Viral Syndrome (ED) Additional Instructions: It appears as if you have a viral syndrome. There is no treatment for this but stay well hydrated and it will resolve on its own. Follow up with the primary care provider if symptoms are not improving. Return for new worsening symptoms. Prescriptions: No Action sertraline 50 mg tablet 50 mg PO QDAY Qty: 90 3RF Follow Up/Referrals: Matty Valdez MD [Primary Care Provider] - Stand Alone Forms: [facility] Info Instructions
== END 2023-09-13 20:34 | disposition home or self-care (01) ==
PROVIDERS: Emergency Provider Student in an Organized Health Care Education/Training Program; PCP Family Medicine
DX: B34.9 Viral infection, unspecified (principal)
CPT/HCPCS: 36415; 71046; 80048; 83735; 83880; 84484; 84703; 85025; 86308; 87631; 87651; 93005; 99283; 99285

== ENCOUNTER 2024-10-10 20:40 | Emergency (ER) | payer SELFPAY ==
[2024-10-10 20:47] VITALS: BP 144/98; PULSE 110; RESP 24; TEMP 36.6; O2SAT 100; BMI 44.4
--- NOTE | 2024-10-10 20:57 | ED_ITS ---
HPI - General Adult General Chief complaint: Shortness of Breath/Dyspnea Stated complaint: difficulty breathing Time Seen by Provider: 10/10/24 20:49 Source: patient Mode of arrival: ambulatory Limitations: no limitations History of Present Illness HPI narrative: 48-year-old female presenting today stating that she has not slept in 48 hours because she is so congested. Patient is tearful and is having a hard time talking. She states that she is so congested she can not breathe out of her nose and feels like she can not breathe at all. When she lays down at night she feels like she is going to because she can not breathe. She can not tell me how many hours she has slept in the last 48 hours. She denies any fevers. She has no cough. No chills. Patient has been taking Zicam for her congestion. Related Data Previous Rx's ?Medication ?Instructions ?Recorded sertraline 50 mg tablet 50 mg PO QDAY #90 tabs 01/14/23 Allergies Allergy/AdvReac Type Severity Reaction Status Date / Time No Known Drug Allergies Allergy Verified 10/10/24 20:50 Review of Systems Status of ROS: Reports: 10 or more systems reviewed and unremarkable except as noted in History and below [facility] Medical History Pharyngitis ?J02.9 - Acute pharyngitis, unspecified (ICD-10) History of gestational diabetes mellitus (GDM), not currently (01/06/11) ?Z86.32 - Personal history of gestational diabetes (ICD-10) Surgical History Previous section (09/19/12) ?Z98.891 - History of uterine scar from previous surgery (ICD-10) History of laparoscopic cholecystectomy (10/04/12) ?Z90.49 - Acquired absence of other specified parts of digestive tract (ICD- 10) History of bilateral tubal ligation (09/19/12) ?Z98.51 - Tubal ligation status (ICD-10) Social History Smoking Status: Never smoker Do you use any of these nicotine containing products: None Second hand tobacco smoke exposure: No How often do you have a drink containing alcohol: monthly or less How many standard drinks containing alcohol do you have on a typical day: 1 or 2 How often do you have six or more drinks on one occasion: Never AUDIT-C Alcohol total score: 1 Non-prescribed substance use: denies use service: No Exam Narrative: Exam Narrative: Overweight, well-developed patient. Patient is hyperventilating and crying. Patient is alert oriented and is cooperative. She answers all questions appropriately. However, she is easily overwhelmed whenever she does not immediately know the answer to a question such as what [id number] medicine she is taking. Patient weekends to cry harder when she cannot answer a question. There is no tangential or magical thinking noted. HEENT: Normocephalic atraumatic. Pupils are equally round reactive to light. Extraocular muscles are intact. Conjunctivae are moist without any icterus noted. Moist mucous membranes. Posterior pharynx is normal. Neck is soft. Cardiovascular: Tachycardic. S1-S2 present without murmurs. Regular rhythm. Lungs: Clear to auscultation bilaterally no wheezes rhonchi or rales are appreciated. Patient takes deep breaths without any discomfort. Skin: Well perfused without any obvious rashes. Const: Vital Signs, click to edit/add: Vital Signs - 24 hr 10/10/24 20:47 Temperature 97.8 F Pulse Rate [Pulse Oximeter] 110 H Respiratory Rate 24 Blood Pressure [Ri ght Upper Arm] 144/98 H Pulse Oximetry 100 Oxygen Delivery Me thod Room Air Course Course ED Course: I did give the patient 1 dose of Afrin as well as 1 dose of IM lorazepam. She felt significantly better after treatment. She fell asleep in the ER and asked for for the lights to be turned off. Vital Signs Vital signs: Initial Vital Signs Temperature 97.8 F 10/10/24 20:47 Temperature Source Temporal Artery Scan 10/10/24 20:47 Pulse Rate 110 H 10/10/24 20:47 Respiratory Rate 24 10/10/24 20:47 Respiratory Effort Spontaneous, Short of Breath, Tachypnea 10/10/24 20:47 Respiratory Depth Shallow 10/10/24 20:47 Respiratory Pattern Tachypnea 10/10/24 20:47 Blood Pressure 144/98 H 10/10/24 20:47 Blood Pressure Mean 113 H 10/10/24 20:47 Blood Pressure Position Sitting 10/10/24 20:47 Pulse Oximetry 100 10/10/24 20:47 Oxygen Delivery Method Room Air 10/10/24 20:47 Vital Signs Temperature 97.8 F 10/10/24 20:47 Pulse Rate 110 H 10/10/24 20:47 Respiratory Rate 24 10/10/24 20:47 Blood Pressure 144/98 H 10/10/24 20:47 Pulse Oximetry 100 10/10/24 20:47 Oxygen Delivery Method Room Air 10/10/24 20:47 Temperature 97.8 F 10/10/24 20:47 Pulse Rate 110 H 10/10/24 20:47 Respiratory Rate 24 10/10/24 20:47 Blood Pressure 144/98 H 10/10/24 20:47 Pulse Oximetry 100 10/10/24 20:47 Oxygen Delivery Method Room Air 10/10/24 20:47 Medications Administered Medications: Generic Name Dose Route Start Last Admin Trade Name Freq PRN Reason Stop Dose Admin Lorazepam 0.5 mg 10/10/24 20:56 10/10/24 21:02 Lorazepam 2 Mg/Ml Inj IM 10/10/24 20:57 0.5 mg ONCE ONE Administration Oxymetazoline HCl 1 spray 10/10/24 20:56 10/10/24 21:04 Oxymetazoline 0.05% Nasal [place] NOSTRIL-B 10/10/24 20:57 1 spray BID ONE Administration Medical Decision Making MDM Narrative Medical decision making narrative: 48-year-old female presenting with a panic attack. feeling better after treatment. Discharge Plan Discharge Clinical Impression: Anxiety, Nasal congestion Patient Disposition: Home, Self-Care Condition: Improved Additional Instructions: Recommend you follow-up with your primary care provider to discuss treatment for anxiety. Okay to use a humidifier for congestion. Recommend starting a steroid nasal spray such as Nasonex or Flonase. Prescriptions: No Action sertraline 50 mg tablet 50 mg PO QDAY Qty: 90 3RF Follow Up/Referrals: Matty Valdez MD [Primary Care Provider] - Stand Alone Forms: [facility] Info Instructions
[2024-10-10] MEDS: LORazepam 2 MG/ML inj 0.5 MG IM (21:02)
[2024-10-10] MEDS: OXYMETAZOLINE 0.05% NASAL SPRAY 1 SPRAY NOSTRIL-B (21:04)
--- OUTSIDE RECORDS SUMMARY | 2024-10-10 21:04 | XMS_ITS | Clinical Summary ---
Author Organization [employer] [facility] [employer] [facility] [employer] Address [place], [place] [address] Care Team Providers Care Percussion Welding Machine Operator Name Role Phone Carolee Quan MD Unavailable [phone] Pcp, No Primary Care Provider Unavailabl e Allergies Active Allergy Reactions Criticality Noted Date Comments Mirtazapine Other - Describe In Comment Field 06/22/2018 Too sleepy Trazodone Other - Describe In Comment Field 08/23/2017 Extreme fatigue(for 3 days on 12/02 tab) Medications Medication Sig Dispensed Refills Start Date End Date Status blood-glucose meterIndications:Pr ediabetes Dispense meter, test strips, lancets covered by pt ins. Prediabetes/R73.03 1 Device 07/22/2017 Active triamcinolone (ARISTOCORT; KENALOG) 0.1 % creamIndications:Ra sh Apply topically to affected area(s) 2 times daily if needed for Other (Specify) (rash). Do not use on face 28.4 g 2 09/15/2017 Active multivitamin capsule One a Day 0 10/05/2017 Active meclizine (ANTIVERT) 25 mg tabletIndications:V ertigo Take 1 tablet by mouth 3 times daily if needed for Vertigo. 30 tablet 2 05/18/2018 Active desogestrel-ethinyl estradiol 0.15-30 mg-mcg (ORTHO-CEPT, 28,) tabletIndications:I rregular periods,PCOS (polycystic ovarian syndrome) Take 1 tablet by mouth once daily. 3 Package 3 05/18/2018 Active citalopram (CELEXA) 40 mg tabletIndications:M oderate episode of recurrent major depressive disorder (HC),Anxiety,Agorap hobia Take 1 tablet by mouth once daily. 90 tablet 1 06/22/2018 Active omeprazole (PRILOSEC) 20 mg Delayed-Release capsuleIndications: Atypical chest pain Take 1 capsule by mouth once daily before a meal. 90 capsule 3 06/22/2018 Active buPROPion (WELLBUTRIN XL) 150 mg Extended-Release tabletIndications:M oderate episode of recurrent major depressive disorder (HC) Take 1 tablet by mouth every morning. 90 tablet 1 06/22/2018 Active Black Cohosh 40 mg tabIndications:[place] pausal symptoms Use daily as needed 0 06/22/2018 Active Active Problems Problem Noted Date Diagnosed Date Agoraphobia 03/23/2018 Prediabetes 06/21/2017 Migraine without aura and wi thout status migrainosus, not intractable 03/22/2015 History of gestational diabe terrance mellitus, not currently 01/06/2011 Resolved Problems Problem Noted Date Diagnosed Date Resolved Date Anxiety 11/14/2014 04/04/2018 Moderate episode of recurren t major depressive disorder 05/10/2012 04/04/2018 Immunizations Name Administration Dates Next Due DTP 06/30/1989,01/06/1989 Oral Polio Vaccine 08/18/1989,01/06/1989 Polio Virus, Unspecified 08/18/1989,01/06/1989 Tdap 09/19/2012,05/06/2006 Family History Medical History Relation Name Comments Good Health Brother 1 Good Health Brother 2 Good Health Brother 3 Good Health Brother 4 Diabetes Father Heart attack Father Hyperlipidemia Father Hypertension Father Other Father after head injury Psychiatric illness Father depressi on Psychiatric illness Mother depressi on Cancer-breast Neg. 1 Cancer-colon Neg. 2 Good Health Sister 1 Good Health Sister 2 Good Health Sister 3 Good Health Sister 4 Relation Name Status Comments Brother 1 Brother 2 Brother 3 Brother 4 Father Mother Neg. 1 Neg. 2 Sister 1 Sister 2 Sister 3 Sister 4 Social History Tobacco Use Types Packs/Day Years Used Date Smoking Tobacco: Former Cigarettes 0.3 2 0 11/29/1997 - 11/29/1999 Smokeless Tobacco: Never Tobacco Cessation:Counseling Given: Yes Comments:socially Alcohol Use Standard Drinks/Week Comments No 0 (1 standard drink = 0.6 oz pur e alcohol) PHQ-2 Answer Date Recorded PHQ-2 Score 3 01/29/2019 Sex and Gender Information Value Date Recorded Sex Assigned at Not on file Gender Identity Not on file Sexual Orientation Not on file Obstetrics History Para Term AB IAB SAB Ectopic Multiple Livin g Live Births 2 2 2 0 0 0 0 0 2 Date Outcome GA Total Labor Labor/2nd/3rd Weight Sex Type Anes PTL Beulah A1 A5 Name Clin 006 Term 40w 0d 20h 00m/ 3.4 kg (7 lb 8 oz) M C-Sec tion Abhi Comments:decelerations , maternal fever ??? failure to decent 08/2012 Term 39w 0d M C-Sec tion Ivan Comments:System Genera zenia. Please review and update details. Last Filed Vital Signs Vital Sign Reading Time Taken Comments Blood Pressure 114/79 08/19/2018 11:50 AM CDT Pulse 97 08/19/2018 11:50 AM CDT Temperature 36.8 ??C (98.3 ??F) 08/19/2018 11:50 AM C DT Respiratory Rate 16 10/05/2017 1:18 PM UNIVERSAL GRINDER TOOL Oxygen Saturation 96% 08/19/2018 11:50 AM CDT Inhaled Oxygen Concentration - - Weight 85.7 kg (189 lb) 08/19/2018 11:50 AM CDT Height 149 cm (4' 10.66) 08/19/2018 11:50 AM CD T Body Mass Index 38.62 08/19/2018 11:50 AM CDT Plan of Treatment Health Maintenance Due Date Last Done Comments Hepatitis C screening for age 18-79 1995 Pap test for age 21-65 10/12/2017 4, 01/06/2011, 11/12/2004 BMI (ht and wt on same day) for age 18+ 08/19/2019 08/19/2018, 06/22/2018, 05/26/2018, Additional history exists Depression screening for age 12+ 12/02/2019 12/02/2018, 10/27/2018, 10/14/2018, Additional history exists Tetanus booster 09/19/2022 09/19/2012, 05/06/2006 Colonoscopy through age 75 2022 Lipids for age 45-75 2022 06/21/2017 Mammogram for age 45-75 2022 COVID-19 vaccine series (2023- season) 2024 Influenza for age 9-49 07/30/2024 HIV for age 15-65 Completed 03/15/2012 Tdap Completed 09/19/2012, 05/06/2006 Pneumococcal series for age 6-64 Aged Out No longer eligible based on patient's age to complete this topic Procedures Procedure Name Priority Date/Time Associated Diagnosis Comments LIPID PANEL W REFLEX MEASURED LDL Routine 06/21/2017 10:02 AM CDT Prediabetes EXOTIC DANCER THIN PREP PAP SCREEN IMAGED Routine 10/12/2014 2:09 PM UNIVERSAL GRINDER TOOL Screening ANTI HIV 1/2 Routine 03/15/2012 10:57 AM CDT Supervision of other normal from Last 3 Months or Most Recently Relevant to Health Maintenance Results * (ABNORMAL) LIPID PANEL W REFLEX MEASURED LDL (06/21/2017 10:02 AM CDT) CHOLESTEROL,TOTAL 192 100 - 199 mg/dL 06/21/2017 5:38 PM CDT [facility] TRIGLYCERIDES 207(H) <150 mg/dL 06/21/2017 5:38 PM CDT [facility] HDL CHOLESTEROL 33(L) >40 mg/dL 7 5:38 PM CDT [facility] NON-HDL CHOLESTEROL 159(H) <145 mg/dl 06/21/2017 5:38 PM CDT [facility] CHOL/HDL RATIO 5.82(H) <4.50 06/21/2017 5:38 PM CDT [facility] LDL CHOLESTEROL 118 <=130 mg/dL 06/21/2017 5:38 PM CDT [facility] PATIENT STATUS FASTING 06/21/2017 5:38 PM CDT [facility] [email or web address]] Blood BLOOD SPECIMEN / Unknown Venipuncture / Unknown 06/21/2017 10:02 AM CDT 06/21/2017 10:02 AM CDT Emmanuel Dumont MD [facility]Y [facility] [address] [place] [address], [facility] [address] [place] [address], * EXOTIC DANCER THIN PREP PAP SCREEN IMAGED (10/12/2014 2:09 PM UNIVERSAL GRINDER TOOL) EXOTIC DANCER CYTOLOGY See Anatomic Pathology case 10/17/2014 3:04 PM UNIVERSAL GRINDER TOOL [facility] Specimen (specimen) Non-Blood / Unknown 10/12/2014 2:09 PM UNIVERSAL GRINDER TOOL 10/12/2014 2:09 PM UNIVERSAL GRINDER TOOL Emmanuel Dumont MD PATHOLOGY/CYTOLO GY [facility] [address] [place] [address], * ANTI HIV 1/2 (03/15/2012 10:57 AM CDT) ANTI HIV 1/2 Non-reacti ve [facility] Blood specimen (specimen) BLOOD SPECIMEN / Unknown 03/15/2012 10:57 AM CDT 03/15/2012 10:46 AM CDT Gabriela Neil CABLE TESTER SEND OUTS [facility] [place]NAL ZIP [id number] [place] [address] from Last 3 Months or Most Recently Relevant to Health Maintenance Advance Directives * Full Code (Latest Code Status on File) Date Activated Date Inactivated Comments 07/15/2012 7:47 PM 07/18/2012 2:40 PM Care Teams Percussion Welding Machine Operator Relationship Specialty Start Date End Date Pcp, No . PCP - General 01/20/19 Carolee Quan MD CARBON BRUSHER ASSEMBLER Obstetrics 06/08/12
[2024-10-10 21:23] VITALS: RESP 16; O2SAT 99
[2024-10-10 21:47] VITALS: O2SAT 98
== END 2024-10-10 22:18 | disposition home or self-care (01) ==
PROVIDERS: Emergency Provider Family Medicine; PCP Family Medicine
DX: F41.9 Anxiety disorder, unspecified (principal); R09.81 Nasal congestion
CPT/HCPCS: 94761; 96372; 99283; 99284; J2060

== ENCOUNTER 2024-10-17 09:56 | Outpatient (CLI) | payer SELFPAY ==
--- OUTSIDE RECORDS SUMMARY | 2024-10-17 09:58 | XMS_ITS | Clinical Summary ---
Author Organization [employer] [facility] [employer] Address [place], [place] [address] Care Team Providers Care Field Operations Coordinator Name Role Phone Carolee Quan MD Unavailable [phone] Pcp, No Primary Care Provider Unavailabl [...] 1 06/22/2018 Active Black Cohosh 40 mg tabIndications:[place] pausal symptoms Use daily as needed 0 [...] 97 08/19/2018 11:50 AM CDT Temperature 36.8 C (98.3 F) 08/19/2018 11:50 AM CDT Respiratory Rate 16 10/05/2017 1:18 PM COUNTY RECORDS MANAGEMENT OFFICER Oxygen Saturation 96% 08/19/2018 11:50 AM CDT [...] LDL Routine 06/21/2017 10:02 AM CDT Prediabetes PRACTICE MANAGEMENT CONSULTANT THIN PREP PAP SCREEN IMAGED Routine 10/12/2014 2:09 PM COUNTY RECORDS MANAGEMENT OFFICER Screening ANTI HIV 1/2 Routine 03/15/2012 10:57 AM CDT Supervision of other normal from Last 3 Months or Most Recently Relevant to Health Maintenance Results * (ABNORMAL) LIPID PANEL W REFLEX MEASURED LDL (06/21/2017 10:02 AM CDT) CHOLESTEROL,TOTAL 192 100 - 199 mg/dL 06/21/2017 5:38 [address] [facility] TRAL LABORATORY TRIGLYCERIDES 207(H) <150 mg/dL 06/21/2017 5:[address] [facility] HDL CHOLESTEROL 33(L) >40 mg/dL 7 5:[address] [facility] NON-HDL CHOLESTEROL 159(H) <145 mg/dl 06/21/2017 5:38 PM CDT [facility] LAB[facility]ORY CHOL/HDL RATIO 5.82(H) <4.50 06/21/2017 5:38 PM CDT [facility] LDL CHOLESTEROL 118 <=130 mg/dL 06/21/2017 5:[address] [facility] TR[facility]ORY PATIENT STATUS FASTING 06/21/2017 5:38 PM CDT [facility] Blood BLOOD SPECIMEN / Unknown Venipuncture / Unknown 06/21/2017 10:02 AM CDT 06/21/2017 10:02 AM CDT Emmanuel Dumont MD [facility] [address] [place] [address], [facility] [address] [place] [address], * PRACTICE MANAGEMENT CONSULTANT THIN PREP PAP SCREEN IMAGED (10/12/2014 2:09 PM COUNTY RECORDS MANAGEMENT OFFICER) PRACTICE MANAGEMENT CONSULTANT CYTOLOGY See Anatomic Pathology case 10/17/2014 3:04 PM COUNTY RECORDS MANAGEMENT OFFICER [facility] Specimen (specimen) Non-Blood / Unknown 10/12/2014 2:09 PM COUNTY RECORDS MANAGEMENT OFFICER 10/12/2014 2:09 PM COUNTY RECORDS MANAGEMENT OFFICER Emmanuel Dumont MD PATHOLOGY/CYTOLO GY [facility] [address] [place] [address], * ANTI HIV 1/2 (03/15/2012 10:57 AM CDT) ANTI HIV 1/2 Non-reacti ve [facility] Blood specimen (specimen) BLOOD SPECIMEN / Unknown 03/15/2012 10:57 AM CDT 03/15/2012 10:46 AM CDT Gabriela Neil FAMILY CENTERED SPECIALIST SEND OUTS [facility] INTERNAL ZIP [id number] [place] [address] from Last 3 Months or Most Recently Relevant to Health Maintenance Advance Directives * Full Code (Latest Code Status on File) Date Activated Date Inactivated Comments 07/15/2012 7:47 PM 07/18/2012 2:40 PM Care Teams Field Operations Coordinator Relationship Specialty Start Date End Date Pcp, No . PCP - General 01/20/19 Carolee Quan MD CASHIER AND WAITER/WAITRESS Obstetrics 06/08/12
== END 2024-10-17 09:57 | disposition home or self-care (01) ==
LOC: NFLDREF 09:57
PROVIDERS: PCP Family Medicine; Visit Provider Family Medicine
DX: Z13.1 Encounter for screening for diabetes mellitus (principal)
CPT/HCPCS: 82947

== ENCOUNTER 2025-08-17 11:55 | Outpatient (CLI) | payer OTHER, SELFPAY ==
[2025-08-17 15:13] LABS: Bacterial Vaginosis* Negative (Negative); Candida glab/krus NOT DETECTED (No Detected)
[2025-08-17 15:30] LABS: Chlamydia DNA Amplified* NOT DETECTED (No Detected); GC DNA Amplified* NOT DETECTED (No Detected)
[2025-08-19 07:45] LABS: HPV Source Cervix
[2025-08-22 07:52] LABS: Pap Test Digital Imaging Done
== END 2025-08-17 11:56 | disposition home or self-care (01) ==
PROVIDERS: PCP Family Medicine; Visit Provider Registered Nurse
DX: R10.2 Pelvic and perineal pain (principal); N92.0 Excessive and frequent menstruation with regular cycle; Z12.4 Encounter for screening for malignant neoplasm of cervix
CPT/HCPCS: 81513; 84443; 87086; 87481; 87491; 87591; 87624; 87625; 87661; 88141; 88142; 88175

== ENCOUNTER 2025-08-22 15:56 | Outpatient (CLI) | payer OTHER, SELFPAY ==
--- NOTE | 2025-08-22 16:00 | CRLHL7_ITS ---
For Patients: As a result of the Century Cures Act, medical imaging exams and procedure reports are released immediately into your electronic medical record. You may view this report before your referring provider. If you have questions, please contact your health care provider. CLINICAL HISTORY: pelvic pain COMPARISON: None. TECHNIQUE: 2D daams-scale ultrasound. In addition, color Doppler and spectral Doppler analysis was performed of the pelvis using a transabdominal and transvaginal approach. Transvaginal imaging performed to better visualize the endometrial stripe and ovaries. FINDINGS: The uterus measures 9.2 x 4.2 x 4.8 cm. No uterine fibroid. The endometrial lining measures 15.7 mm in thickness. The right ovary measures 2.0 x 2.0 x 2.1 cm in size and the left ovary measures 3.7 x 2.1 x 2.4 cm. The ovaries demonstrate normal arterial and venous blood flow on color Doppler and spectral Doppler analysis. There are no suspicious fluid collections within the cul-de-sac. Hypoechoic nonvascular left ovarian cyst measures 1.9 x 1.5 x 1.6 cm. IMPRESSION: Hemorrhagic left ovarian cyst measures 1.9 cm. Trace amount of pelvic free fluid. No torsion or adnexal mass. Dictated by Jose Knutson MD @ 08/23/2025 12:59:36 PM (Electronically Signed)
== END 2025-08-22 15:57 | disposition home or self-care (01) ==
LOC: US 15:57
PROVIDERS: PCP Family Medicine; Visit Provider Registered Nurse
DX: R10.2 Pelvic and perineal pain (principal); N83.202 Unspecified ovarian cyst, left side; N92.0 Excessive and frequent menstruation with regular cycle
CPT/HCPCS: 76830; 76856; 93976

== ENCOUNTER 2025-08-24 12:02 | Outpatient (CLI) | payer OTHER, SELFPAY | END 2025-08-24 12:03 | disposition home or self-care (01) | PROVIDERS: PCP Family Medicine; Visit Provider Registered Nurse | DX: L68.0 Hirsutism (principal); N91.5 Oligomenorrhea, unspecified | CPT/HCPCS: 82670; 83001; 83498; 84146; 84270; 84402; 84403 ==

== ENCOUNTER 2025-10-28 14:23 | Emergency (ER) | payer OTHER, SELFPAY ==
--- OUTSIDE RECORDS SUMMARY | 2025-10-28 14:25 | XMS_ITS | Clinical Summary ---
Author Organization [employer] [facility] [employer] [facility] [employer] Address [address] [place] [id number] Care Team Providers Care School Janitor Name Role Phone Carolee Quan MD Unavailable [phone] Pcp, No Primary Care Provider Unavailabl e Allergies Active Allergy Reactions Criticality Noted Date Comments Mirtazapine Other - Describe In Comment Field 06/22/2018 Too sleepy Trazodone Other - Describe In Comment Field 08/23/2017 Extreme fatigue(for 3 days on 12/02 tab) Medications blood-glucose meterIndication s:Prediabetes Dispense meter, test strips, lancets covered by pt ins. Prediabetes/R7 3.03 1 Device 7 Active triamcinolone (ARISTOCORT; KENALOG) 0.1 % creamIndication s:Rash Apply topically to affected area(s) 2 times daily if needed for Other (Specify) (rash). Do not use on face 28.4 g 2 7 Active multivitamin capsule One a Day 0 7 Active meclizine (ANTIVERT) 25 mg tabletIndicatio ns:Vertigo Take 1 tablet by mouth 3 times daily if needed for Vertigo. 30 tablet 2 8 Active desogestrel-eth inyl estradiol 0.15-30 mg-mcg (ORTHO-CEPT, 28,) tabletIndicatio ns:Irregular periods,PCOS (polycystic ovarian syndrome) Take 1 tablet by mouth once daily. 3 Package 3 8 Active citalopram (CELEXA) 40 mg tabletIndicatio ns:Moderate episode of recurrent major depressive disorder (HC),Anxiety,Ag oraphobia Take 1 tablet by mouth once daily. 90 tablet 1 8 Active omeprazole (PRILOSEC) 20 mg Delayed-Release capsuleIndicati ons:Atypical chest pain Take 1 capsule by mouth once daily before a meal. 90 capsule 3 8 Active buPROPion (WELLBUTRIN XL) 150 mg Extended-Releas e tabletIndicatio ns:Moderate episode of recurrent major depressive disorder (HC) Take 1 tablet by mouth every morning. 90 tablet 1 8 Active Black Cohosh 40 mg tabIndications: Menopausal symptoms Use daily as needed 0 8 Active Active Problems Problem Noted Date Diagnosed Date Agoraphobia 03/23/2018 Prediabetes 06/21/2017 Migraine without aura and wi thout status migrainosus, not intractable 03/22/2015 History of gestational diabe terrance mellitus, not currently 01/06/2011 Resolved Problems Problem Noted Date Diagnosed Date Resolved Date Anxiety 11/14/2014 04/04/2018 Moderate episode of recurren t major depressive disorder 05/10/2012 04/04/2018 Encounters Date Type Department Care Team Description 08/27/2025 Lab Requisition [facility] [phone] Olamide Pickard, [employer] from Last 3 Months Immunizations Immunization Administration Dates Next Due DTP 06/30/1989,01/06/1989 Oral [...] Answer Date Recorded PHQ-2 Score 3 01/29/2019 Comments No Sex and Gender Information Value Date Recorded Sex Assigned at Not on file Legal Sex Female 5:39 AM COOK SOUP Gender Identity Not on file Sexual Orientation Not on file Occupation Industry Job Start Date Job End Date [employer] Not on file Not on file Not on file Obstetrics History Para Term [...] CDT Respiratory Rate 16 10/05/2017 1:18 PM COOK SOUP Oxygen Saturation 96% 08/19/2018 11:50 AM CDT Inhaled Oxygen Concentration - - Weight 85.7 kg (189 lb) 08/19/2018 11:50 AM CDT Height 149 cm (4' 10.66) 08/19/2018 11:50 AM CD T Body Mass Index 38.62 08/19/2018 11:50 AM CDT Plan of Treatment Health Maintenance Due Date Last Done Comments Hepatitis C screening for age 18-79 1995 Hepatitis B series for 19+ (1 of 3 - 19+ 3-dose series) 1996 Pap test for age 21-65 10/12/2017 4, 01/06/2011, 11/12/2004 BMI (ht and wt on same day) for age 18+ 08/19/2019 08/19/2018, 06/22/2018, 05/26/2018, Additional history exists Depression screening for age 12+ 12/02/2019 12/02/2018, 10/27/2018, 10/14/2018, Additional history exists Tetanus booster 09/19/2022 09/19/2012, 05/06/2006 Colonoscopy through age 75 2022 Lipids for age 45-75 2022 06/21/2017 Mammogram for age 45-75 2022 Influenza Vaccine (#1) 2025 RSV vaccine for adults or (1 - 1-dose 75+ series) 2052 HIV for age 15-65 Completed 03/15/2012 Pneumococcal series for age 6-49 Aged Out No longer eligible based on patient's age to complete this topic Procedures Procedure Name Priority Date/Time Associated Diagnosis Comments LAB TRACKING EVENT Routine 08/24/2025 12 :25 PM CDT PATH TISSUE EXAM Routine 08/24/2025 12:2 5 PM CDT LIPID PANEL W REFLEX MEASURED LDL Routine 06/21/2017 10:02 AM CDT Prediabetes WORM SORTER THIN PREP PAP SCREEN IMAGED Routine 10/12/2014 2:09 PM COOK SOUP Screening ANTI HIV 1/2 Routine 03/15/2012 10:57 AM CDT Supervision of other normal (HC) from Last 3 Months or Most Recently Relevant to Health Maintenance Results * LAB TRACKING EVENT (08/24/2025 12:25 PM CDT) Other (Other) Client Collect / Unknown 08/24/2025 12:25 PM CDT 08/27/2025 2:23 PM CDT us Olamide Pickard NP LAB BILL ONLY Final Res ult [facility] [address] [place] [address], * PATH TISSUE EXAM (08/24/2025 12:25 PM CDT) Case Report Pathology Report Case: [id number] Authorizing Provider: Olamide Pickard NP Collected: 08/24/2025 1225 Ordering Location: [facility] Received: 08/27/2025 1516 Pathologist: Alesia Ashford MD Specimen: Endometrial Biopsy 08/29/2025 10:31 AM CDT [facility] Final Diagnosis A) ENDOMETRIUM, BIOPSY: 1. Secretory endometrium 2. Negative for chronic endometritis 3. Negative for hyperplasia, atypia, and malignancy 08/29/2025 10:31 AM CDT [facility] at 1031 CDT Clinical Information Menorrhagia 08/29/2025 10:31 AM CDT [facility] Gross Description A) Received in formalin, labeled with the patient's name and date of , is a 2.6 x 1.8 x 0.4 cm aggregate of pink-clifford mucosa admixed with clotted blood and mucous. The specimen is entirely submitted in 1 cassette. VRS 08/27/2025 08/29/2025 10:31 AM CDT [facility] Microscopic Description The final diagnosis is based on microscopic examination of appropriate sections of all specimens. 08/29/2025 10:31 AM CDT [facility] Additional Information Interpreted at [facility] - [address], [place] [address] 08/29/2025 10:31 AM CDT [facility] Other (Endometrial Biopsy) 08/24/2025 12:25 PM CDT 08/27/2025 3:16 PM CDT us Olamide Pickard NP PATHOLOGY/CYTOLOGY Final Result [facility] [address] [place] [address], [place] * (ABNORMAL) LIPID PANEL W REFLEX MEASURED LDL (06/21/2017 10:02 AM CDT) CHOLESTEROL,TOTAL 192 100 - 199 mg/dL 06/21/2017 5:38 PM CDT [facility] TRIGLYCERIDES 207(H) <150 mg/dL 06/21/2017 5:38 PM CDT [facility] HDL CHOLESTEROL 33(L) >40 mg/dL 7 5:38 PM CDT [facility] NON-HDL CHOLESTEROL 159(H) <145 mg/dl 06/21/2017 5:38 PM CDT [facility] CHOL/HDL RATIO 5.82(H) <4.50 06/21/2017 5:38 PM CDT [facility] LDL CHOLESTEROL 118 <=130 mg/dL 06/21/2017 5:38 PM CDT [facility] PATIENT STATUS FASTING 06/21/2017 5:38 PM CDT [facility] Blood BLOOD SPECIMEN / Unknown Venipuncture / Unknown 06/21/2017 10:02 AM CDT 06/21/2017 10:02 AM CDT Emmanuel Dumont MD CHEMISTRY Final Re sult [facility] [address] [place] [address], [facility] [address] [place] [address], * WORM SORTER THIN PREP PAP SCREEN IMAGED (10/12/2014 2:09 PM COOK SOUP) WORM SORTER CYTOLOGY See Anatomic Pathology case 10/17/2014 3:04 PM COOK SOUP [facility] Specimen (specimen) Non-Blood / Unknown 10/12/2014 2:09 PM COOK SOUP 10/12/2014 2:09 PM COOK SOUP Emmanuel Dumont MD PATHOLOGY/CYTOLOGY Final Result [facility] [address] [place] [address], * ANTI HIV 1/2 (03/15/2012 10:57 AM CDT) ANTI HIV 1/2 Non-reacti ve [facility] Blood specimen (specimen) BLOOD SPECIMEN / Unknown 03/15/2012 10:57 AM CDT 03/15/2012 10:46 AM CDT us Gabriela Neil [employer] SEND OUTS F inal Result [facility] INTERNAL ZIP [address] [place] [address] from Last 3 Months or Most Recently Relevant to Health Maintenance [place] [address] [place] [id number] Advance Directives * Full Code (Latest Code Status on File) Date Activated Date Inactivated Comments 07/15/2012 7:47 PM 07/18/2012 2:40 PM Care Teams School Janitor Relationship Specialty Start Date End Date Pcp, No . PCP - General 01/20/19 Carolee Quan MD EDITOR HOUSE ORGAN Obstetrics 06/08/12
[2025-10-28 14:49] VITALS: BP 114/82; PULSE 114; RESP 18; TEMP 36.4; O2SAT 97; BMI 37.7
[2025-10-28 15:42] LABS: PCR FLU A Negative PCR FLU A (Negative); PCR FLU B Negative PCR FLU B (Negative); PCR RSV Negative PCR RSV (Negative); SARS PCR* Negative SARS-CoV-2 (Negative)
--- NOTE | 2025-10-28 17:10 | ED.GENADULT ---
HPI - General Adult General Date Seen: 10/28/25 Chief complaint: Cough Stated complaint: sickness getting worse Time Seen by Provider: 10/28/25 17:09 History of Present Illness HPI narrative: Pleasant 49-year-old female with a past medical history including PCOS, UTIs, oligomenorrhea, pelvic pain, anxiety/depression, gallstones, kidney stones. She presents to the ER today for evaluation of cough, chills and body aches, headache, generalized weakness, and dizziness.. She has been sick for 5 days or so. Symptoms 1st began last Wednesday since Wednesday with chills, fatigue,, body aches headache. 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 However on and Wednesday she was feeling more ill with weakness, body aches, and worsening headache. Headache is mostly in the frontal region, more on the right than on the left. It is similar in many respects to previous migraines, but with the associated body aches and chills that is different. Also 2 days ago she started developing a nonproductive cough and some achiness in her chest that she feels like is probably pulled muscles from breathing. She has been resting in bed mostly and recognize that she has really not been eating and drinking much and not staying hydrated. Today she is feeling a little bit weaker than normal and a little bit dizzy when she stands up. She is just not getting better. She was hoping to have improved on her own, but since she is not getting better she came to the ER. She is a nonsmoker. No history of asthma. No history of chronic lung disease. Related Data Home Medications ?Medication ?Instructions ?Recorded ?Confirmed semaglutide (weight loss) 0.25 0.25 mg subcut QWEEK 08/17/25 08/24/25 mg/0.5 mL subcutaneous pen injector Previous Rx's ?Medication ?Instructions ?Recorded doxycycline monohydrate 100 mg 100 mg PO BID #14 caps 10/28/25 capsule Allergies Allergy/AdvReac Type Severity Reaction Status Date / Time No Known Drug Allergies Allergy Verified 08/24/25 08:24 [facility] Medical History History of gestational diabetes mellitus (GDM), not currently (01/06/11) ?Z86.32 - Personal history of gestational diabetes (ICD-10) Surgical History Previous section (09/19/12) ?Z98.891 - History of uterine scar from previous surgery (ICD-10) History of laparoscopic cholecystectomy (10/04/12) ?Z90.49 - Acquired absence of other specified parts of digestive tract (ICD-10) History of bilateral tubal ligation (09/19/12) ?Z98.51 - Tubal ligation status (ICD-10) Family History Other Bleeding disorder Diabetes FH: mental illness Heart disease High blood pressure High cholesterol Ovarian cancer Stroke Thyroid disease Social History Narrative: Kids are 9, 12 y.o. plus 3 adopted kids ages 10, 8, 7 y.o. What is your current living situation?: I presently have a place to live Problems where you live: no known problems In the past 12 months, utilities in danger of being shut off: declined to answer In past 12 months, lack of transportation kept you from medical appts, meetings, work, or getting things needed for daily living: no In the past 12 mos, have been you worried that your food would run out before you had money to buy more?: never true In the past 12 mos, the food you bought just didn't last and you didn't have money to buy more?: sometimes true Smoking Status: Never smoker Do you use any of these nicotine containing products: None Second hand tobacco smoke exposure: No How often do you have a drink containing alcohol: monthly or less How many standard drinks containing alcohol do you have on a typical day: 1 or 2 How often do you have six or more drinks on one occasion: Never AUDIT-C Alcohol total score: 1 Non-prescribed substance use: denies use How often does anyone, including family, friends and others, physically hurt you: never How often does anyone, including family, friends and others, insult or talk down to you: frequently How often does anyone, including family, friends and others, threaten you with harm: never How often does anyone, including family, friends and others, scream or curse at you: never service: No Health Related Social Needs: food insecurity (Z59.41) and Other personal risk factors, not elsewhere classified (Z91.89) Exam Narrative: Exam Narrative: Constitutional: Appears well-developed and well-nourished. Alert. Conversant. Very polite. Non toxic. HENT: Head: Atraumatic. Nose: Nose normal. No purulent rhinorrhea. Tympanic membranes normal bilaterally. Mouth/Throat: Oral mucosa is clear and moist. no trismus. Pharynx normal. Tonsils symmetric. No tonsillar enlargement, erythema, or exudate. Eyes: Conjunctivae normal. EOM normal. Pupils equal, round, and reactive to light. No scleral icterus. Neck: Normal range of motion. Neck supple. No tracheal deviation present. Cardiovascular: Tachycardic, 110, regular rhythm. No gallop. No friction rub. No murmur heard. Symmetric radial artery pulses Pulmonary/Chest: Effort normal. No stridor. No respiratory distress. No wheezes. Left basilar rales and rhonchi. No tenderness. Abdominal: Soft. No distension. No mass. No tenderness. No rebound. No guarding. Musculoskeletal: RUE: Normal range of motion. No tenderness. No deformity LUE: Normal range of motion. No tenderness. No deformity RLE: Normal range of motion. No edema. No tenderness. No deformity LLE: Normal range of motion. No edema. No tenderness. No deformity Neurological: Alert and oriented to person, place, and time. Normal strength. CN II-VII intact. No sensory deficit. GCS eye subscore is 4. GCS verbal subscore is 5. GCS motor subscore is 6. Normal coordination Skin: Skin is warm and dry. No rash noted. No pallor. Normal capillary refill. Psychiatric: Normal mood. Normal affect. Const: Vital Signs, click to edit/add: Vital Signs - 24 hr 10/28/25 14:49 Temperature 97.5 F L Pulse Rate [Pulse Oximeter] 114 H Respiratory Rate 18 Blood Pressure [Ri ght Upper Arm] 114/82 Pulse Oximetry 97 Oxygen Delivery Me thod Room Air Course Course ED Course: Patient arrived and was triage. Viral trouble swab was obtained by nurses at triage and came back negative. The ER is very busy today so I did see the patient in the triage [place] after the clot came back. After history and physical it really turns out that she is here predominantly cause she has a bad headache and wants treatment for that. On my exam she does have left basilar rales and rhonchi which I think clinically are suspicious for pneumonia. Oxygen saturation is normal. She is tachycardic which I think is from dehydration but not febrile overall does not appear septic or shocky. We will order IV fluids and medications for her headache. 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 Patient agrees and would prefer to hold off on chest x-ray. Reevaluation(s) Reevaluation #1: Recheck-patient says headache is markedly improved but not completely resolved, after meds. She had her dizziness is better. She has been up and walking steadily in the hallway. Made urine and feels more hydrated. She is comfortable discharging home. I did repeat a clinical exam that she still has rales in the left base was I think clinically are suspicious for. We will treat empirically with a course of antibiotics for community-acquired pneumonia. First dose of doxycycline administered orally here in the ER today. Prescription sent to her pharmacy. Precautions for return to the ER reviewed Vital Signs Vital signs: Initial Vital Signs Temperature 97.5 F L 10/28/25 14:49 Temperature Source Temporal Artery Scan 10/28/25 14:49 Pulse Rate 114 H 10/28/25 14:49 Respiratory Rate 18 10/28/25 14:49 Blood Pressure 114/82 10/28/25 14:49 Blood Pressure Mean 92 10/28/25 14:49 Blood Pressure Position Sitting 10/28/25 14:49 Pulse Oximetry 97 10/28/25 14:49 Oxygen Delivery Method Room Air 10/28/25 14:49 Vital Signs Temperature 97.5 F L 10/28/25 14:49 Pulse Rate 114 H 10/28/25 14:49 Respiratory Rate 18 10/28/25 14:49 Blood Pressure 114/82 10/28/25 14:49 Pulse Oximetry 97 10/28/25 14:49 Oxygen Delivery Method Room Air 10/28/25 14:49 Temperature 97.5 F L 10/28/25 14:49 Pulse Rate 114 H 10/28/25 14:49 Respiratory Rate 18 10/28/25 14:49 Blood Pressure 114/82 10/28/25 14:49 Pulse Oximetry 97 10/28/25 14:49 Oxygen Delivery Method Room Air 10/28/25 14:49 Medications Administered Medications: Discontinued Medications Generic Name Dose Route Start Last Admin Trade Name Aicha PRN Reason Stop Dose Admin Sodium Chloride 1,000 mls @ 1,000 mls/hr 10/28/25 17:30 10/28/25 18:31 0.9 % Sodium Chloride 1000 Ml IV 10/28/25 18:29 Infused .Q1H ZEFERINO Infusion Ketorolac Tromethamine 15 mg 10/28/25 17:24 10/28/25 17:47 Ketorolac 15 Mg/Ml Inj IVP 10/28/25 17:25 15 mg ONCE ONE Administration Metoclopramide HCl 10 mg 10/28/25 17:24 10/28/25 17:47 Metoclopramide Hcl 5 Mg/Ml Inj IVP 10/28/25 17:25 10 mg ONCE ONE Administration Medical Decision Making [facility] Narrative Medical decision making narrative: This patient presents for evaluation of fatigue and body aches ongoing for about 5 days with headache. Headache has gotten worse for the past couple of days and also she has developed a nonproductive cough for the past couple of days. Overall, her symptoms could be consistent with an respiratory tract infection. Viral testing negative for coronavirus, influenza, RSV. With her worsening cough occurring after 3-4 days of illness also consider community-acquired pneumonia. Or bacterial superinfection. On my lung exam she does have left lower lobe rales which I think are consistent with pneumonia. Interestingly most of her chest discomfort is more centered on the right side of her chest. She is not short of breath. She was tachycardic at presentation but only a low-grade fever. Overall she is clinically well appearing I do not think she is septic from pneumonia and think she needs labs, or admission for IV antibiotics. Given high clinical suspicion and clinical exam findings we will treat for pneumonia based on history and physical without imaging. We did treat her headache with Toradol and Reglan she had substantial improvement and is feeling much better. Also heart rate is improved, dizziness is better. Oxygen is normal. At this point I think she is safe for outpatient management. Will start doxycycline 100 mg p.o. b.i.d. for 7 days for community-acquired pneumonia. 1st dose given here in the ER. Precautions for return to the ER. There is no signs at this point of other serious bacterial infection such as OM, RPA, epiglottitis, PRACTICE OFFICE ASSOCIATE, strep pharyngitis, sinusitis, meningitis, bacteremia, serious bacterial infection. There are no gastrointestinal symptoms at this point and no signs of dehydration. Close followup with primary care physician is indicated. Return to ED for fever > 103, worsening shortness of breath, dizziness or weakness, protracted vomiting, confusion, or other worsening. Lab Data Labs: Lab Results 10/28/25 Range/Units 14:55 SARS-CoV-2 (PCR) Negative SARS-CoV-2 (Negative) Influenza Type A (PCR) Negative PCR FLU A (Negative) Influenza Type B (PCR) Negative PCR FLU B (Negative) RSV (PCR) Negative PCR RSV (Negative) Discharge Plan Discharge Clinical Impression: Headache, Pneumonia Patient Disposition: Home, Self-Care Condition: Stable Instructions: Acute Headache (DC), Pneumonia (ED) Additional Instructions: As we discussed, I am glad her headache is feeling better. Your lung sounds do reveal some fluid in your left lung and I think you have a pneumonia in your left lower lobe. I willing to start on the antibiotic (doxycycline) tonight and continue with twice daily for 7 days. It usually takes about 24-48 hours before in infection will start to get better on antibiotics. If you are not substantially improved within 72 hours, please come back to your doctor or come back to the ER to be rechecked. If you get worse, please come back to the ER right away. Please come back to the ER right away if you have worsening or severe headache, or other new symptoms such as fever, worsening trouble breathing, worsening chest pain, or any concerns. Prescriptions: New doxycycline monohydrate 100 mg capsule 100 mg PO BID Qty: 14 0RF No Action semaglutide (weight loss) 0.25 mg/0.5 mL pen injector 0.25 mg subcut QWEEK Rx Instructions: administer weeks 1 through 4 of therapy Follow Up/Referrals: Matty Valdez MD [Primary Care Provider, Family Practice] Stand Alone Forms: [facility] Medical Info Instructions
[2025-10-28] MEDS: METOCLOPRAMIDE HCL 5 MG/ML INJ 10 MG IVP (17:47)
[2025-10-28] MEDS: DOXYCYCLINE HYCLATE 100 MG PO (18:57)
== END 2025-10-28 19:03 | disposition home or self-care (01) ==
PROVIDERS: Emergency Provider Emergency Medicine; PCP Family Medicine
DX: R51.9 Headache, unspecified (principal); J18.9 Pneumonia, unspecified organism
CPT/HCPCS: 87631; 96374; 96375; 99283; 99284; A9270; J1885; J2765; J7030